=== PATIENT | female | born 2000 | race Hispanic/Latino ===

== ENCOUNTER 2021-12-09 05:00 | Emergency (ER) | payer OTHER ==
[~2021-12-09] VITALS: Ht 160 cm; Wt 85.7 kg
[2021-12-09] MEDS ORDERED: ONDANSETRON 4MG INJ IVP ONE (05:30)
[2021-12-09] MEDS ORDERED: FAMOTIDINE 20MG VIAL IV ONE (05:30)
[2021-12-09 05:53] LABS: BASOPHILS % (AUTO) 0.1 % (0.0-5.0); EOSINOPHILS % (AUTO) 0.1 % (0.0-8.0); HEMATOCRIT 37.2 % (36-48); LYMPHOCYTES % (AUTO) 6.7 % (21.0-51.0); MEAN CORPUSCULAR HEMOGLOBIN 26.8 pg (27.0-33.0); MEAN CORPUSCULAR HGB CONC 33.3 g/dL (32.0-36.0); MEAN CORPUSCULAR VOLUME 80.3 fL (79-99); MONOCYTES % (AUTO) 3.4 % (3.0-13.0); NEUTROPHILS % (AUTO) 89.2 % (40.0-77.0); PLATELET COUNT (AUTO) 321 K/uL (130-400); RED BLOOD CELL COUNT(AUTO) 4.63 MIL/uL (4.00-5.50); RED CELL DISTRIBUTION WIDTH 14.3 % (11.0-15.5); WHITE BLOOD COUNT (AUTO) 14.6 K/uL (4.8-10.8)
[2021-12-09 05:54] LABS: APPEARANCE,URINE CLEAR (CLEAR); BILIRUBIN,URINE NEGATIVE (NEGATIVE); COLOR,URINE YELLOW (YELLOW); GLUCOSE, URINE (UA) NEGATIVE (NEGATIVE); KETONES,URINE NEGATIVE (NEGATIVE); LEUKOCYTE ESTERASE ,URINE NEGATIVE (NEGATIVE); NITRATE,URINE NEGATIVE (NEGATIVE); OCCULT BLOOD,URINE NEGATIVE (NEGATIVE); PH,URINE 6.5 (5.0-8.0); PROTEIN,URINE NEGATIVE (NEGATIVE); UROBILINOGEN,URINE 0.2 mg/dL (0.2-1.0)
[2021-12-09 05:57] LABS: HCG,QUALITATIVE URINE NEGATIVE (NEGATIVE)
[2021-12-09 06:07] LABS: POTASSIUM 3.9 mmol/L (3.5-5.1)
[2021-12-09 06:08] LABS: CREATININE 0.9 mg/dL (0.5-1.5)
[2021-12-09 06:12] LABS: ALBUMIN 4.1 g/dL (3.5-5.0); TOTAL PROTEIN, SERUM 8.1 g/dL (6.0-8.3)
[2021-12-09] MEDS ORDERED: PANTOPRAZOLE 40 MG/VIAL IV ONE (07:30)
[2021-12-09] MEDS ORDERED: AZITHROMYCIN 250 MG TABLET PO ONE (07:30)
[2021-12-09] MEDS ORDERED: ESOM40CA PO (07:42)
[2021-12-09] MEDS ORDERED: LOPE2CAP PO (07:42)
[2021-12-09] MEDS ORDERED: ONDA4TAB10 PO (07:42)
[2021-12-09 07:53] VITALS: BP 128/82
== END 2021-12-09 08:02 | disposition home or self-care (01) ==
LOC: EDH 05:00
DX: K52.9 Noninfective gastroenteritis and colitis, unspecified (principal); F41.9 Anxiety disorder, unspecified
CPT/HCPCS: 99284; 96374; 96375; 80053; 83690; 85025; 81003; 81025; 36415; J3490; J2405; C9113